=== PATIENT | male | born 1995 | race American Indian/Alaskan Native ===

== ENCOUNTER 2020-02-18 11:29 | Emergency (ER) | payer SELFPAY ==
[2020-02-18 11:35] VITALS: BP 115/64
--- NOTE | 2020-02-18 11:50 | Emergency Department Report ---
ED ENT HPI - General Chief complaint: Upper Respiratory Infection Stated complaint: TONSLES ISSUE Source: patient Mode of arrival: Ambulatory Limitations: No Limitations - History of Present Illness Initial comments: The patient was evaluated in the emergency department for symptoms described in the history of present illness. He/she was evaluated in the context of the global COVID-19 pandemic, which necessitated consideration that the patient might be at risk for infection with the virus that causes COVID-19. Institutional protocols and algorithms that pertain to the evaluation of patients at risk for COVID-19 are in a state of rapid change based on information released by regulatory bodies including the CDC and federal and state organizations. These policies and algorithms were followed during the patient's care in the emergency department. Please note that these policies, procedures and recommendations changed on a rapid basis. 25-year-old -[place]ian male presents to the emergency room reporting a 1 week history of tonsil pain. Patient has not taken anything for his pain. Denies any fever chills no nausea no vomiting. Onset/Timin -: week(s) Location: throat Severity scale (0 -10): 5 Quality: stabbing, sharp Consistency: constant Improves with: none Worsens with: swallowing Associated Symptoms: pain with swallowing, sore throat. denies: fever, cough, gum swelling, toothache, tinnitus, hearing loss, discharge from ear, rhinorrhea, other - Related Data Previous Rx's Medication Instructions Recorded Last Taken Type Clindamycin [Clindamycin CAP] 300 mg PO Q6H #42 cap 01/04/16 Unknown Rx Ibuprofen [Motrin] 600 mg PO Q8H PRN #12 tablet 01/04/16 Unknown Rx Nystatin [Nystatin SUSP] 10 ml PO TID #1 bottle 02/18/20 Unknown Rx Allergies Allergy/AdvReac Type Severity Reaction Status Date / Time No Known Allergies Allergy Unverified 01/04/16 15:43 ED Dental HPI - General Chief complaint: Upper Respiratory Infection Stated complaint: TONSLES ISSUE Source: patient Mode of arrival: Ambulatory Limitations: No Limitations - Related Data Previous Rx's Medication Instructions Recorded Last Taken Type Clindamycin [Clindamycin CAP] 300 mg PO Q6H #42 cap 01/04/16 Unknown Rx Ibuprofen [Motrin] 600 mg PO Q8H PRN #12 tablet 01/04/16 Unknown Rx Nystatin [Nystatin SUSP] 10 ml PO TID #1 bottle 02/18/20 Unknown Rx Allergies Allergy/AdvReac Type Severity Reaction Status Date / Time No Known Allergies Allergy Unverified 01/04/16 15:43 ED Review of Systems ROS: Stated complaint: TONSLES ISSUE Other details as noted in HPI Comment: All other systems reviewed and negative ED Past Medical Hx - Past Medical History Previous Medical History?: No - Surgical History Past Surgical History?: No - Social History Smoking Status: Current Every Day Smoker Substance Use Type: Alcohol - Medications Home Medications: Home Medications Medication Instructions Recorded Confirmed Last Taken Type Clindamycin [Clindamycin CAP] 300 mg PO Q6H #42 cap 01/04/16 Unknown Rx Ibuprofen [Motrin] 600 mg PO Q8H PRN #12 tablet 01/04/16 Unknown Rx Nystatin [Nystatin SUSP] 10 ml PO TID #1 bottle 02/18/20 Unknown Rx ED Physical Exam - General Limitations: No Limitations General appearance: alert, in no apparent distress - Head Head exam: Present: atraumatic, normocephalic - Eye Eye exam: Present: normal appearance - ENT ENT exam: Present: mucous membranes moist - Expanded ENT Exam Expanded Throat exam: Positive: tonsillar erythema, tonsillomegaly, tonsillar exudate - Respiratory Respiratory exam: Absent: accessory muscle use - Cardiovascular Cardiovascular Exam: Present: regular rate, normal rhythm. Absent: systolic murmur, diastolic murmur, rubs, gallop - Back Exam Back exam: Present: normal inspection, full ROM - Neurological Exam Neurological exam: Present: alert, oriented X3. Absent: normal gait - Psychiatric Psychiatric exam: Present: normal affect, normal mood - Skin Skin exam: Present: warm, dry, intact, normal color. Absent: rash ED Course Vital Signs 02/18/20 11:33 Temperature 97.4 F L Pulse Rate 94 H Respiratory 18 Rate Blood Pressure 115/64 O2 Sat by Pulse 100 Oximetry Critical care attestation.: If time is entered above; I have spent that time in minutes in the direct care of this critically ill patient, excluding procedure time. ED Disposition Clinical Impression: Contact with and (suspected) exposure to human immunodeficiency virus [hiv], Thrush, oral Disposition: DC-01 TO HOME OR SELFCARE Is pt being admited?: No Does the pt Need Aspirin: No Condition: Stable Instructions: Oral Thrush, Adult, [id number] Additional Instructions: Strep test is negative this appears to be thrush which is highly concerning for HIV/AIDS. I recommended she get an immediate HIV test at one of the health department or infectious disease provider. Prescriptions: Nystatin [Nystatin SUSP] 10 ml PO TID #1 bottle Referrals: DARON HONG MD [Staff Physician] - 3-5 Days
== END 2020-02-18 13:55 | disposition home or self-care (01) ==
LOC: ED 11:29
DX: B37.0 Candidal stomatitis (principal); Z20.6 Contact with and (suspected) exposure to human immunodeficiency virus [HIV]; F17.200 Nicotine dependence, unspecified, uncomplicated; Z79.899 Other long term (current) drug therapy
CPT/HCPCS: 87116; 87430; 99283

== ENCOUNTER 2020-08-11 11:08 | Emergency (ER) | payer SELFPAY ==
[2020-08-11 11:14] VITALS: BP 111/74
[2020-08-11] MEDS ORDERED: TETANUS,DIPH,PERTUSS(ACELL) VACCINE 0.5 ML SYRINGE IM ONE (12:03)
[2020-08-11] MEDS ORDERED: NEOMY 3.5 MG/BACIT 400 UNITS/POLY B 5000 UNITS/GM OINT PACKET TP ONE (12:03)
[2020-08-11] MEDS ORDERED: ACETAMINOPHEN 325 MG TAB PO ONE (12:03)
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
[2020-08-11] MEDS ORDERED: SODIUM CHLORIDE 0.9% IRR 500 ML BOTTLE IR SCH (12:30)
== END 2020-08-11 13:28 | disposition home or self-care (01) ==
LOC: ED 11:08
DX: S40.812A Abrasion of left upper arm, initial encounter (principal); S30.810A Abrasion of lower back and pelvis, initial encounter; S80.812A Abrasion, left lower leg, initial encounter; L03.116 Cellulitis of left lower limb; L03.114 Cellulitis of left upper limb; L03.317 Cellulitis of buttock; F17.200 Nicotine dependence, unspecified, uncomplicated; Z72.89 Other problems related to lifestyle; Z79.899 Other long term (current) drug therapy; V87.7XXA Person injured in collision between other specified motor vehicles (traffic), initial encounter; Y93.89 Activity, other specified; Y92.488 Other paved roadways as the place of occurrence of the external cause; Y99.8 Other external cause status
CPT/HCPCS: 90471; 90715; 99282

== ENCOUNTER 2021-02-05 20:57 | Emergency (ER) | payer SELFPAY ==
[2021-02-05] MEDS ORDERED: LACTATED RINGERS 1,000 ML IV ONE (22:42)
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
[2021-02-05 23:12] LABS: Basophils % (Auto) 1.2 % (0.0-1.8); Eosinophils # (Auto) 0.1 K/mm3 (0.0-0.4); Hematocrit 40.3 % (35.5-45.6); Hemoglobin 13.9 gm/dl (11.8-15.2); Lymphocytes # (Auto) 1.9 K/mm3 (1.2-5.4); Lymphocytes % (Auto) 47.8 % (13.4-35.0); Mean Corpuscular HGB Conc 35 % (32-34); Mean Corpuscular Volume 92 fl (84-94); Monocytes # (Auto) 0.4 K/mm3 (0.0-0.8); Monocytes % (Auto) 11.4 % (0.0-7.3); Platelet Count 195 K/mm3 (140-440); Red Blood Count 4.37 M/mm3 (3.65-5.03); Red Cell Distribution Width 13.4 % (13.2-15.2)
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
[2021-02-05 23:42] LABS: Alanine Aminotransferase 33 units/L (7-56); Albumin 4.1 g/dL (3.9-5); BUN/Creatinine Ratio 24; Blood Urea Nitrogen 19 mg/dL (9-20); Calcium 9.4 mg/dL (8.4-10.2); Hemolysis Index 21
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
[2021-02-06] MEDS ORDERED: SODIUM CHLORIDE 0.9% 1000 ML 1,000 ML IV ONE (00:04)
[2021-02-06] MEDS ORDERED: ACETAMINOPHEN 325 MG TAB PO STA (00:04)
[2021-02-06 02:02] LABS: Amphetamine Screen,Urine PRESUMPTIVE POSITIVE; Bacteria,Urine 3+ /HPF (Negative); Benzodiazepines Screen,Urine PRESUMPTIVE NEGATIVE; Bilirubin,Urine NEG (Negative); Blood,Urine NEG (Negative); Calcium Oxalate Crystals,Urine 1+; Cannabinoid Screen,Urine PRESUMPTIVE NEGATIVE; Cocaine Screen,Urine PRESUMPTIVE NEGATIVE; Color,Urine Yellow (Yellow); Methadone Screen,Urine PRESUMPTIVE NEGATIVE; Opiate Screen,Urine PRESUMPTIVE NEGATIVE; Protein,Urine <15 mg/dL mg/dL (Negative)
[2021-02-06 03:41] VITALS: BP 118/78
--- NOTE | 2021-02-08 11:23 | Electrocardiograph Report ---
[facility] Test Date: 2021-02-05 Test Time: 23:36:09 Pat Name: JAIME APONTE Department: Room: Gender: M Holter Technician: RKOKU : 1995 Requested By: CHAU CLAROS Order Number: [id number] Reading MD: Estefania Rollins Measurements Intervals [place] Rate: 75 P: 36 AR: 137 QRS: 71 QRSD: 89 T: 66 QT: 385 QTc: 429 Interpretive Statements Sinus arrhythmia Nonspecific T abnrm, anterolateral leads No previous ECG available for comparison Electronically Signed On 02-08-2021 11:23:31 EST by Estefania Rollins
== END 2021-02-06 04:39 | disposition home or self-care (01) ==
LOC: ED 20:57
DX: S09.90XA Unspecified injury of head, initial encounter (principal); F15.10 Other stimulant abuse, uncomplicated; R55 Syncope and collapse; F17.200 Nicotine dependence, unspecified, uncomplicated; V49.59XA Passenger injured in collision with other motor vehicles in traffic accident, initial encounter; V49.9XXA Car occupant (driver) (passenger) injured in unspecified traffic accident, initial encounter; Y93.89 Activity, other specified; Y92.89 Other specified places as the place of occurrence of the external cause; Y99.9 Unspecified external cause status
CPT/HCPCS: 36415; 70450; 71045; 72125; 72170; 80053; 80307; 81001; 82550; 84484; 85025; 93005; 96360; 96361; 99285; J7030; J7120; 80320; J3490; Q0162; G0480

== ENCOUNTER 2021-05-30 08:08 | Emergency (ER) | payer OTHER ==
[2021-05-30] MEDS ORDERED: IBUPROFEN 800 MG TAB PO ONE (08:52)
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
[2021-05-30 10:14] VITALS: BP 119/69
== END 2021-05-30 10:14 | disposition home or self-care (01) ==
LOC: ED 08:08
DX: S13.4XXA Sprain of ligaments of cervical spine, initial encounter (principal); F17.200 Nicotine dependence, unspecified, uncomplicated; Z72.89 Other problems related to lifestyle; Z79.899 Other long term (current) drug therapy; V89.2XXA Person injured in unspecified motor-vehicle accident, traffic, initial encounter; Y93.89 Activity, other specified; Y92.488 Other paved roadways as the place of occurrence of the external cause; Y99.8 Other external cause status
CPT/HCPCS: 72040; 99283